=== PATIENT | male | born 1990 | race Caucasian/White ===

== ENCOUNTER 2017-08-15 14:00 | Emergency (ER) | payer BC ==
[2017-08-15 14:06] VITALS: BP 148/71
--- NOTE | 2017-08-15 14:46 | UC ---
Lower Extremity/Ankle HPI - History of Current Complaint Chief Complaint: UCLowerExtremity Stated Complaint: ANKLE SWELLING Time Seen by Provider: 08/15/17 14:36 - Allergies/Home Medications Allergies/Adverse Reactions: Allergies Allergy/AdvReac Type Severity Reaction Status Date / Time No Known Allergies Allergy Verified 08/15/17 14:02 PMH/Surg Hx/FS Hx/Imm Hx - Additional Past Medical History Additional PMH: states he has been having pain on medial aspect of right ankle for the past 2 days. He works at [employer] and as a regional company hazmat tanker driver, does not remember spraining his ankle, pain is mainly when standing 6/10. Has not taken anything for the pain. BP slightly elevated , states he has been told in the past his BP runs high but is not taking any medications for HTN. Denies PMH Previously Healthy: Yes - Surgical History Surgery Procedure, Year, and Place: Left toe surgery - Social History Occupation: Employed Full-time Alcohol Use: None Substance Use Type: None Smoking Status (MU): Never Smoked Tobacco Review of Systems Constitutional: Negative Musculoskeletal: Arthralgia All Other Systems Reviewed And Are Negative: Yes Physical Exam Triage Information Reviewed: Yes Appearance: Well-Appearing Vital Signs: Initial Vital Signs Temp 97.3 F 08/15/17 14:03 Pulse 64 08/15/17 14:03 Resp 16 08/15/17 14:03 BP 148/71 08/15/17 14:03 Pulse Ox 100 08/15/17 14:03 Vital Signs Reviewed: Yes Neck exam: Normal Respiratory Exam: Normal Cardiovascular Exam: Normal Musculoskeletal: Positive: Strength Intact, ROM Intact, No Edema - tender on medial aspect of right leg, superior to medial malleolus. No bruising, no edema. Mild pronation of both feet. Plantarflexion increases tenderness. Heelwalk and tiptoe wnl Lower Extremity Course/Dx - Course Course Of Treatment: right medial leg pain near ankle. RICE. Start NSAIDS. F/ u with PCP for Elevated BP reading. Second readin/82mmHG - Differential Dx/Diagnosis Provider Diagnoses: right leg pain due to tendinitis posterior tibial muscle Discharge - Discharge Plan Condition: Stable Disposition: HOME Patient Education Materials: Tendinitis (ED) Forms: *Work Release Referrals: No Primary Care Phys,NOPCP [Primary Care Provider] - [facility] [place] [facility] [Outside]
== END 2017-08-15 15:10 | disposition home or self-care (01) ==
LOC: UCEAST 14:00
DX: M76.821 Posterior tibial tendinitis, right leg (principal); M79.661 Pain in right lower leg
CPT/HCPCS: 99212; G0463

== ENCOUNTER 2018-08-10 03:49 | Emergency (ER) | payer BC ==
[2018-08-10 03:58] VITALS: BP 137/70
--- NOTE | 2018-08-10 04:01 | ED ---
Back Pain - HPI Summary HPI Summary: This patient is a 28 year old M presenting to [facility] with a chief complaint of lower back pain that began 10 days ago. The patient rates the pain 2/10 in severity. Patient reports paresthesia down bilateral LEs. Patient denies bladder and bowel incontinence. 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 - History of Current Complaint Chief Complaint: EDBackInjuryPain Stated Complaint: BACK PAIN Hx Obtained From: Patient Onset/Duration: Still Present Onset/Duration: Still Present Timing: Constant Back Pain Location: Is Discrete @ - lower Severity Initially: Mild Severity Currently: Mild Pain Intensity: 2 Pain Scale Used: 0-10 Numeric Associated Signs And Symptoms: Positive: Negative - bladder and bowel incontinence., Other - paresthesia down bilateral LEs - Allergies/Home Medications Allergies/Adverse Reactions: Allergies Allergy/AdvReac Type Severity Reaction Status Date / Time No Known Allergies Allergy Verified 08/15/17 14:02 PMH/Surg Hx/FS Hx/Imm Hx Endocrine/Hematology History: Denies: Hx Diabetes, Hx Thyroid Disease Cardiovascular History: Denies: Hx Hypertension Respiratory History: Denies: Hx Asthma, Hx Chronic Obstructive Pulmonary Disease (COPD) GI History: Denies: Hx Ulcer Neurological History: Denies: Hx Transient Ischemic Attacks (TIA) - Surgical History Surgery Procedure, Year, and Place: Left toe surgery Infectious Disease History: No Infectious Disease History: Denies: Hx Clostridium Difficile, Hx Hepatitis, Hx Human Immunodeficiency Virus (HIV), Hx of Known/Suspected MRSA, Hx Shingles, Hx Tuberculosis, Hx Known/ Suspected VRE, Hx Known/Suspected VRSA, History Other Infectious Disease, Traveled Outside the [place] in Last 30 Days - Family History Known Family History: Negative: Seizure Disorder - Social History Alcohol Use: None Substance Use Type: Reports: None Smoking Status (MU): Never Smoked Tobacco Review of Systems Positive: Other - lower back pain Positive: Paresthesia All Other Systems Reviewed And Are Negative: Yes Physical Exam - Summary Physical Exam Summary: VITAL SIGNS: Reviewed. GENERAL: Patient is a well-developed and nourished male who is lying comfortable in the stretcher. Patient is not in any acute respiratory distress. HEAD AND FACE: No signs of trauma. No ecchymosis, hematomas or skull depressions. No sinus tenderness. EYES: PERRLA, EOMI x 2, No injected conjunctiva, no nystagmus. EARS: Hearing grossly intact. Ear canals and tympanic membranes are within normal limits. MOUTH: Oropharynx within normal limits. NECK: Supple, trachea is midline, no adenopathy, no JVD, no carotid bruit, no c- spine tenderness, neck with full ROM. CHEST: Symmetric, no tenderness at palpation LUNGS: Clear to auscultation bilaterally. No wheezing or crackles. CVS: Regular rate and rhythm, S1 and S2 present, no murmurs or gallops appreciated. ABDOMEN: Soft, non-tender. No signs of distention. No rebound no guarding, and no masses palpated. Bowel sounds are normal. EXTREMITIES: FROM in all major joints, no edema, no cyanosis or clubbing. NEURO: Alert and oriented x 3. No acute neurological deficits. Speech is normal and follows commands. SKIN: Dry and warm Back: TTP over the sacrum. Bilateral straight leg test positive at 60 degrees. Triage Information Reviewed: Yes Vital Signs On Initial Exam: Initial Vitals Temp Pulse Resp BP Pulse Ox 97.9 F 73 20 137/70 97 08/10/18 03:54 08/10/18 03:54 08/10/18 03:54 08/10/18 03:54 08/10/18 03:54 Vital Signs Reviewed: Yes Diagnostics - Vital Signs Vital Signs Temp Pulse Resp BP Pulse Ox 08/10/18 03:54 97.9 F 73 20 137/70 97 - Laboratory Lab Statement: Any lab studies that have been ordered have been reviewed, and results considered in the medical decision making process. Re-Evaluation - Re-Evaluation First Eval Re-Evaluation Time: 04:29 Change: Unchanged Comment: Pt is refusing pain medication. Back Pain Course/Dx - Course Assessment/Plan: This patient is a 28 year old M presenting to [facility] with a chief complaint of lower back pain that began 10 days ago. The patient rates the pain 2/10 in severity. Patient reports paresthesia down bilateral LEs. Patient denies bladder and bowel incontinence. 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 Patient will be discharged with prescription for flexeril and f/u with PCP referral clinc. The patient is agreeable with this plan. - Diagnoses Provider Diagnoses: Back pain Discharge - Sign-Out/Discharge Documenting (check all that apply): Patient Departure - Discharge Plan Condition: Stable Disposition: HOME Prescriptions: Cyclobenzaprine TAB* [Flexeril 10 MG TAB*] 10 mg PO TID PRN #20 tab PRN Reason: Spasms - Back Ibuprofen TAB* [Motrin TAB* 800 MG] 800 mg PO Q6H PRN #30 tab PRN Reason: Pain Patient Education Materials: Back Pain (ED) Referrals: [facility] [Outside] Additional Instructions: RETURN TO THE EMERGENCY DEPARTMENT FOR CHANGING OR WORSENING SYMPTOMS - Attestation Statements Document Initiated by Scribe: Yes Documenting Scribe: Sergio Otto Provider For Whom Scribe is Documenting (Include Credential): Vinny Shannon MD Scribe Attestation: Sergio Alvarado , scribed for Vinny Shannon MD on 08/10/18 at 0442. Status of Scribe Document: Ready
[2018-08-10] MEDS ORDERED: Ketorolac INJ* 60 MG/2 ML VIAL IM ONE (04:15)
== END 2018-08-10 04:41 | disposition home or self-care (01) ==
LOC: ED 03:49
DX: R20.2 Paresthesia of skin (principal)
CPT/HCPCS: 99282; J1885